=== PATIENT | female | born 2000 | race Caucasian/White ===

== ENCOUNTER → 2025-04-04 13:29 | Outpatient (BNVA) | payer OTHER, SELFPAY | PROVIDERS: Visit Provider Nurse Practitioner Women's Health | DX: Z12.4 Encounter for screening for malignant neoplasm of cervix (principal) | CPT/HCPCS: 87624 ==

== ENCOUNTER 2025-04-19 10:32 | Outpatient (CLI) | payer OTHER, SELFPAY ==
--- NOTE | 2025-04-19 10:45 | US_ITS ---
WS: [id number] ULTRASOUND BREAST RIGHT TECHNIQUE: Ultrasound right breast focused area of concern. CLINICAL INFORMATION: N64.4 - Mastodynia COMPARISON: None. FINDINGS: Ultrasound RIGHT breast 12:00 position 1 cm from the nipple in the area of concern. Lobulated cystic lesion in the area of concern measuring 1.2 x 1.0 x 1.0 cm compatible with a complex cyst. Findings have a benign appearance. Recommend annual screening mammography age 40 US/US breast RT limited* 16039 IMPRESSION: BI-RADS 2 benign Recommend annual screening mammography age 40
== END 2025-04-19 10:33 | disposition home or self-care (01) ==
LOC: RAD 10:35
PROVIDERS: Visit Provider Nurse Practitioner Women's Health
DX: N64.4 Mastodynia (principal); N60.01 Solitary cyst of right breast
CPT/HCPCS: 76642

== ENCOUNTER 2025-05-15 13:50 | Outpatient (CLI) | payer OTHER, SELFPAY ==
--- NOTE | 2025-05-15 14:30 | US_ITS ---
WS: [id number] US pelv w/transvag [id number] HISTORY: N94.10 - Unspecified dyspareunia COMPARISON: None available. Uterus: 6.4 cm x 3.8 cm x 3.0 cm. Normal size uterus. Uterus is retroverted on transvaginal imaging. Mild heterogeneity within the myometrium but no fibroid is identified. Endometrium: 0.5 cm. Normal. Right ovary: 2.0 cm x 3.1 cm x 1.8 cm. Normal size and vascularity, no cystic or solid masses. Several small follicles. No solid mass. Left ovary: 1.1 cm x 2.8 cm x 2.4 cm. Normal size and vascularity, no cystic or solid masses. Several small follicles. Tiny amount of free fluid in the cul-de-sac. US/US pelv w/transvag [id number] IMPRESSION: 1. Normal uterus and endometrium. 2. Normal ovaries. 3. Tiny amount of physiologic free fluid.
== END 2025-05-15 13:51 | disposition home or self-care (01) ==
LOC: RAD 13:52
PROVIDERS: Visit Provider Nurse Practitioner Women's Health
DX: N94.10 Unspecified dyspareunia (principal)
CPT/HCPCS: 76830; 76856

== ENCOUNTER → 2025-06-07 13:02 | Outpatient (BNVA) | payer OTHER, SELFPAY | PROVIDERS: Visit Provider Nurse Practitioner Women's Health | DX: E05.90 Thyrotoxicosis, unspecified without thyrotoxic crisis or storm (principal) | CPT/HCPCS: 80053; 82306; 84439; 84443; 84481; 85025 ==